=== PATIENT | male | born 1960 | race American Indian/Alaskan Native ===

== ENCOUNTER 2018-10-04 15:56 | Emergency (ER) | payer OTHER ==
[2018-10-04] MEDS ORDERED: TYLENOL PO ONE (19:21)
[2018-10-04] MEDS ORDERED: ASPIRIN PO ONE (19:21)
--- NOTE | 2018-10-04 19:23 | Emergency Department Report ---
Chief Complaint: Extremity Injury, Lower Stated Complaint: CHEST PAIN/RT ANKLE PAIN Time Seen by Provider: 10/04/18 19:18 - HPI History of Present Illness: Pt presents to the ED for substernal CP a couple days tightness SOB with exertion no n/V, no radiation of the pain no cough , no rhinorrhea, no congestion (+) fever right thigh pain box fell onto leg at work noticed RLE edema no recent surgery, recent illness, immobilization, no recent long car/plane ride MSE screening note: Focused history and physical exam performed. Due to findings the following was ordered: CP protocol, and XR of the right femur ED Disposition for MSE Condition: Stable
[2018-10-04] MEDS ORDERED: TYLENOL ONE (19:25)
[2018-10-04 19:59] LABS: Hematocrit 39.3 % (35.5-45.6); Hemoglobin 13.1 gm/dl (11.8-15.2); Mean Corpuscular HGB Conc 33 % (32-34); Mean Corpuscular Volume 89 fl (84-94); Platelet Count 244 K/mm3 (140-440); Red Blood Count 4.42 M/mm3 (3.65-5.03); Red Cell Distribution Width 14.3 % (13.2-15.2)
[2018-10-04 20:37] LABS: Band Neutrophils # (Manual) 1.3 K/mm3; Basophils % (Manual) 0 % (0.0-1.8); Eosinophils % (Manual) 0 % (0.0-4.3); Total Cells Counted 100
[2018-10-04 20:38] LABS: Hypochromasia 1+
--- NOTE | 2018-10-04 20:49 | XRay Report ---
PROCEDURE: RIGHT FEMUR TECHNIQUE: RIGHT femur radiographs, AP and lateral views. CPT 24628 HISTORY: Pain COMPARISONS: None . FINDINGS: Fracture (s) and/or Dislocation(s): None . Joint space(s): Normal . Soft tissues: Normal . Bone mineralization: Normal . Foreign bodies: None . IMPRESSION: Normal Examination . This document is electronically signed by Ernesto Yeager MD., October 04 2018 08:47:14 PM ET
--- NOTE | 2018-10-04 20:50 | XRay Report ---
PROCEDURE: XR CHEST 1V AP TECHNIQUE: PROCEDURE: CHEST 1 VIEW TECHNIQUE: Chest radiograph posteroanterior projection. CPT 99782 HISTORY: Chest pain COMPARISONS: None . FINDINGS: Heart: Normal. Mediastinum/Vessels: Normal. Lungs/Pleural space: There is minimal blunting of bilateral costophrenic angles. Bilateral lungs are free of infiltrates or mass lesions.. Bony thorax: No acute osseous abnormality. IMPRESSION: Minimal bilateral pleural effusions. This document is electronically signed by Ernesto Yeager MD., October 04 2018 08:48:19 PM ET
[2018-10-04] MEDS ORDERED: ROCEPHIN/NS 2 GM/100 ML 2 GM/100 ML BAG IV ONE (21:45)
--- NOTE | 2018-10-04 21:52 | Emergency Department Report ---
ED Fever HPI - General Chief Complaint: Extremity Injury, Lower Stated Complaint: CHEST PAIN/RT ANKLE PAIN Time Seen by Provider: 10/04/18 19:18 - History of Present Illness Initial Comments: Mr. Cruz is a 58 yo female with history of hypertension and dyslipidemia who presents with fever chills generalized malaise today. He felt out of sorts today. He felt somewhat disoriented. He is concerned for kidney infection. He has had frequent urination and nocturia over the last several years which he attributes to middle-age. No definitive diagnosis of prostate issues. Today, he seemed to have more frequent urination. Mr. Cruz feels much better after receiving antipyretic in triage. He does not have a PCP. He is treated at a urgent care center in [place] Which manages his chronic medical condiions: hypertension and dyslipidemia. No history of diabetes. Denies dysuria. Denies back pain. Medications include: Losartan, pravastatin, amlodipine, metoprolol. Recently he incurred a bruise on his right thigh at work. A box fell onto his leg during work which recently yesterday. For several months he has had mild nondescript chest tightness which began in April. He attributes the chest pain to losartan. He is concerned since certain lots have been recalled, He is concerned the chest pain may be caused by this medication. He does not have any new chest pain. Timing/Duration: this morning Fever Severity/Quality: subjective Associated Symptoms: confusion ED Review of Systems ROS: Stated complaint: CHEST PAIN/RT ANKLE PAIN Other details as noted in HPI Comment: All other systems reviewed and negative Constitutional: fever, malaise Respiratory: denies: cough Endocrine: excessive sweating Gastrointestinal: denies: abdominal pain, nausea, vomiting ED Past Medical Hx - Past Medical History Previous Medical History?: Yes Hx Hypertension: Yes Hx Diabetes: No Additional medical history: hyperlipidemia - Surgical History Past Surgical History?: No - Social History Smoking Status: Never Smoker Substance Use Type: Alcohol - Medications Home Medications: Home Medications Medication Instructions Recorded Confirmed Last Taken Type levoFLOXacin [Levaquin] 750 mg PO QDAY 5 Days #5 tablet 10/04/18 Unknown Rx ED Physical Exam - General Limitations: No Limitations General appearance: alert, in no apparent distress - Head Head exam: Present: atraumatic, normocephalic - Eye Eye exam: Present: normal appearance - ENT ENT exam: Present: mucous membranes moist - Neck Neck exam: Present: normal inspection, full ROM. Absent: tenderness, meningismus - Respiratory Respiratory exam: Present: normal lung sounds bilaterally. Absent: respiratory distress, wheezes, rales, rhonchi - Cardiovascular Cardiovascular Exam: Present: regular rate, normal rhythm, normal heart sounds. Absent: systolic murmur, diastolic murmur, rubs, gallop - GI/Abdominal GI/Abdominal exam: Present: soft, normal bowel sounds. Absent: distended, tenderness, guarding, rebound - Rectal Rectal exam: Present: deferred - Extremities Exam Extremities exam: Present: normal inspection, other (right lower extremity no edema no bruising no cellulitis right ankle: Normal exam) - Back Exam Back exam: Present: normal inspection - Neurological Exam Neurological exam: Present: alert, oriented X3 - Psychiatric Psychiatric exam: Present: normal affect, normal mood - Skin Skin exam: Present: warm, dry, intact, normal color. Absent: rash ED Course Vital Signs 10/04/18 19:18 Temperature 102.4 F H Pulse Rate 92 H Respiratory 18 Rate Blood Pressure 131/70 O2 Sat by Pulse 98 Oximetry ED Medical Decision Making - Lab Data Result diagrams: 10/04/18 19:27 10/04/18 19:27 Laboratory Results - last 24 hr 10/04/18 19:27 WBC 19.1 H RBC 4.42 Hgb 13.1 Hct 39.3 MCV 89 MCH 30 MCHC 33 RDW 14.3 Plt Count 244 Add Manual Diff Complete Total Counted 100 Seg Neutrophils % [employer]er Seg Neuts % (Manual) 82.0 H Band Neutrophils % 7.0 Lymphocytes % (Manual) 7.0 L Reactive Lymphs % (Man) 0 Monocytes % (Manual) 4.0 Eosinophils % (Manual) 0 Basophils % (Manual) 0 Metamyelocytes % 0 Myelocytes % 0 Promyelocytes % 0 Blast Cells % 0 Nucleated RBC % Not Reportable Seg Neutrophils # Man 15.7 H Band Neutrophils # 1.3 Lymphocytes # (Manual) 1.3 Abs React Lymphs (Man) 0.0 Monocytes # (Manual) 0.8 Eosinophils # (Manual) 0.0 Basophils # (Manual) 0.0 Metamyelocytes # 0.0 Myelocytes # 0.0 Promyelocytes # 0.0 Blast Cells # 0.0 WBC Morphology Not Reportable Hypersegmented Neuts Not Reportable Hyposegmented Neuts Not Reportable Hypogranular Neuts Not Reportable Smudge Cells Not Reportable Toxic Granulation Not Reportable Toxic Vacuolation Not Reportable Dohle Bodies Not Reportable Pelger-Huet Anomaly Not Reportable Stacie Rods Not Reportable Platelet Estimate Appears normal Clumped Platelets Not Reportable Plt Clumps, EDTA Not Reportable Large Platelets Not Reportable Giant Platelets Not Reportable Platelet Satelliting Not Reportable Plt Morphology Comment Not Reportable RBC Morphology Not Reportable Dimorphic RBCs Not Reportable Polychromasia Not Reportable Hypochromasia 1+ Poikilocytosis Not Reportable Anisocytosis Not Reportable Microcytosis Not Reportable Macrocytosis Not Reportable Spherocytes Not Reportable Pappenheimer Bodies Not Reportable Sickle Cells Not Reportable Target Cells Not Reportable Tear Drop Cells Not Reportable Ovalocytes Not Reportable Helmet Cells Not Reportable Pitts-Stow Bodies Not Reportable [place] Rings Not Reportable Kristy Cells Not Reportable Bite Cells Not Reportable Crenated Cell Not Reportable Elliptocytes Not Reportable Acanthocytes (Spur) Not Reportable Rouleaux Not Reportable Hemoglobin C Crystals Not Reportable Schistocytes Not Reportable Malaria parasites Not Reportable Michael Bodies Not Reportable Hem Pathologist Commnt No - Radiology Data Radiology results: report reviewed Chest x-ray PA lateral two-view: Small bilateral pleural effusions Right femur: No fracture - Medical Decision Making Mr. Cruz presents with fever and generalized malaise. No evidence of UTI cellulitis or pneumonia. With elevated white count bacteremia is a possibility. Differential diagnosis also includes leukemia lymphoma hematological process. I prescribed Levaquin antibiotics I strongly encouraged follow with our outpatient physician to which he was referred. No hypotension or signs of SIRS while in the ED. IV ceftriaxone provided in the ED for the possibility of sepsis. Critical care attestation.: If time is entered above; I have spent that time in minutes in the direct care of this critically ill patient, excluding procedure time. ED Disposition Clinical Impression: Fever, Elevated white blood cell count Disposition: [id number]-01 TO HOME OR SELFCARE Is pt being admited?: No Does the pt Need Aspirin: No Condition: Stable Instructions: Fever in Adults (ED) Additional Instructions: Your white blood cell count is 19,000. Normally this elevation represents infection. Please have this number rechecked after you have completely finished your antibiotics. Prescriptions: levoFLOXacin [Levaquin] 750 mg PO QDAY 5 Days #5 tablet [facility] [Primary Care Provider] - 3-5 Days ADARSH BARRERA DO [Staff Physician] - 3-5 Days
[2018-10-04 22:07] LABS: BUN/Creatinine Ratio 15; Blood Urea Nitrogen 20 mg/dL (9-20); Calcium 8.6 mg/dL (8.4-10.2); Hemolysis Index 15
[2018-10-04 22:29] LABS: Bilirubin,Urine NEG (Negative); Blood,Urine NEG (Negative); Color,Urine Amber (Yellow); Hyaline Casts,Urine 1 /LPF; Mucus,Urine FEW /HPF; Protein,Urine <15 mg/dL mg/dL (Negative); Sperm,Urine 1+ /HPF (NP)
[2018-10-04 23:24] VITALS: BP 130/65
== END 2018-10-04 23:58 | disposition home or self-care (01) ==
LOC: ED 15:56
DX: R53.81 Other malaise (principal); R50.9 Fever, unspecified; D72.829 Elevated white blood cell count, unspecified; I10 Essential (primary) hypertension; E78.00 Pure hypercholesterolemia, unspecified
CPT/HCPCS: 36415; 71045; 73552; 80048; 81001; 84484; 85007; 85025; 87040; 93005; 93010; 96365; 99284; J0696